=== PATIENT | male | born 1995 | race African-American/Black ===

== ENCOUNTER 2020-09-11 17:06 | Emergency (ER) | payer OTHER, MEDICAID, SELFPAY ==
[2020-09-11 17:18] VITALS: BP 123/59; PULSE 63; RESP 14; TEMP 37.1; O2SAT 97; BMI 20.3
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
[2020-09-11 18:35] VITALS: BP 117/71; PULSE 59; RESP 18; O2SAT 96
== END 2020-09-11 18:36 | disposition home or self-care (01) ==
PROVIDERS: Emergency Provider Emergency Medicine; PCP Physician Assistant
DX: S20.211A Contusion of right front wall of thorax, initial encounter (principal); V19.9XXA Pedal cyclist (driver) (passenger) injured in unspecified traffic accident, initial encounter
CPT/HCPCS: 71101; 99283

== ENCOUNTER 2021-08-09 17:49 | Emergency (ER) | payer OTHER, MEDICAID, SELFPAY ==
[2021-08-09 18:03] VITALS: BP 148/84; PULSE 76; RESP 14; O2SAT 98; BMI 19.8
== END 2021-08-09 18:36 | disposition left against medical advice (07) ==
PROVIDERS: Emergency Provider Emergency Medicine
DX: R51.9 Headache, unspecified (principal)
CPT/HCPCS: 99281

== ENCOUNTER 2023-04-24 22:00 | Emergency (ER) | payer OTHER, MEDICAID, SELFPAY ==
[2023-04-24 22:03] VITALS: BP 137/60; PULSE 90; RESP 18; TEMP 36.7; O2SAT 98; BMI 19.5
--- NOTE | 2023-04-24 22:47 | PC.NURSE ---
pt observed walking out of ED room with all belongings, visualized by multiple nurses, pt states if it's going to take this long for anyone to see me then I'll just go, pt left ED in no acute distress.
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
== END 2023-04-24 22:51 | disposition left against medical advice (07) ==
PROVIDERS: Emergency Provider Emergency Medicine
DX: S09.90XA Unspecified injury of head, initial encounter (principal)
CPT/HCPCS: 99281